=== PATIENT | female | born 1965 | race Caucasian/White ===

== ENCOUNTER 2021-08-16 11:21 | Day surgery (SDC) | payer OTHER ==
[~2021-08-16] VITALS: Ht 167.6 cm; Wt 79.5 kg
[~2021-08-16 11:21] MED LIST: BUPIVACAINE MPF 0.25% 30 ML VIAL. ONE; BUPR300T3 PO; CYCL5TAB PO; DEXAMETHASONE SOD PHOS 4 MG/ML VIAL ONE; DULA0.75 SQ; HYDROmorphone 2 MG/ML VIAL IVP PRN; IV RINGERS,LACTATED 1000ML 1,000 ML IV SCH; LIDOCAINE 2% PF 5 ML VIAL. ONE; LORA-434 PO; MORPHINE SULFATE 2 MG/ML INJ. IVP PRN; ONDANSETRON PF 4 MG/2 ML VIAL. ONE; PROCHLORPERAZINE 10 MG/2 ML VIAL. IVP PRN; PROPOFOL 10 MG/ML (20ML) VIAL. IV ONE; TRIA1TAB3 PO; fentaNYL PF VIAL 100 MCG/2 ML VIAL IVP PRN; fentaNYL PF VIAL 100 MCG/2 ML VIAL ONE
[2021-08-16] MEDS ORDERED: INSULIN LISPRO 100 UNIT/ML 3ML VIAL for OP,RR ONLY. SQ PRN (11:45)
[2021-08-16 11:58] VITALS: BP 135/74
[2021-08-16] MEDS ORDERED: SCOPOLAMINE 1.5MG PATCH. TD ONE ×2 (12:00→12:01)
[2021-08-16] MEDS ORDERED: SEVOFLURANE 31 TO 60 MINUTES. IH ONE (12:26)
--- NOTE | 2021-08-16 12:38 | PDOC4 ---
OPERATIVE NOTE Date: Date: Aug 16, 2021 Pre-Op Diagnosis: Mass dorsum right wrist Post-Op Diagnosis: Same Procedure Performed: Excision mass right wrist Surgeon: Bear Anesthesia Type: General Blood Loss: 5 cc Specimans Obtained: Mass right wrist dorsum Findings: See dictation Complications: None TABITHA CAMPBELL Jr. DO Aug 16, 2021 12:38
[2021-08-16] MEDS ORDERED: OXYC-325 PO (12:42)
[2021-08-16] MEDS ORDERED: oxyCODONE/APAP 5/325 1 TAB TABLET PO PRN (12:45)
--- NOTE | 2021-08-16 12:48 | DISCH ---
DISCHARGE INSTRUCTIONS Condition on Discharge Condition on Discharge: Stable Activity After Discharge Activity Instructions for Disc: Avoid exertion Bathing Instructions: Shower-keep dressing dry Lifting Instructions after Dis: No heavy lifting Driving Instructions after Dis: Do not drive today Weight Bearing Status after Di: No restrictions Wound Incision Care Wound/Incision Care: Ice to area for comfort Other wound/incision instructi: May change dressing postoperative day #3 Contacting the DRShannon after DC Call your doctor for: If your condition worsens Follow-Up Follow up with: Dr. Campbell in 10 to 14 days TABITHA CAMPBELL Jr. DO Aug 16, 2021 12:48
--- NOTE | 2021-08-16 12:48 | OP ---
DATE OF SURGERY: 08/16/2021 PREOPERATIVE DIAGNOSIS: Mass, right wrist dorsum. POSTOPERATIVE DIAGNOSIS: Mass, right wrist dorsum. PROCEDURE: Excision of mass, right wrist, 2 cm. SURGEON: Jamal Sifuentes Jr., DO WIRE STITCHER OPERATOR: Ivan. ANESTHESIA: General. COMPLICATIONS: None. ESTIMATED BLOOD LOSS: 5 mL. Standard dictation for bioinformatics assistant. DESCRIPTION OF PROCEDURE: The patient was taken to the operative suite, given a general anesthetic. The right upper extremity was then prepped and draped in a sterile fashion. Incision was made directly over the area of the mass. This was taken down carefully to the mass. The extensor tendons were identified and protected. The neurovascular structures were protected. One tributary was bovied. Mass was identified and was indeed a ganglion cyst. This was removed in its entirety using deeper dissection. This continued down to the carpal region. This was removed in its entirety. No other masses were noted. Therefore, this was thoroughly irrigated and suctioned dry. Wound was then reapproximated in an interrupted fashion. Sterile dressing was applied. Tourniquet was deflated with good return of pulses and capillary refill. The patient was then taken from the operative bed to the postoperative bed, taken to the PACU in stable condition. JOSE DE JESUS DR: Betty TID: [id number]
[2021-08-16] MEDS: fentaNYL PF VIAL 100 MCG/2 ML VIAL IVP PRN ×2 (12:57→13:08)
[2021-08-16 13:40] VITALS: BP 135/75
[2021-08-16] MEDS ORDERED: OXYC1TAB15 PO (14:00)
--- NOTE | 2021-08-17 15:10 | PATHOLOGY ---
[facility] Accession Number: [id number] . 01 Material submitted: . hand - RIGHT HAND GANGLION CYST DORSUM. Modifiers: right . 02 Diagnosis: Segments of dense fibroconnective and fibroadipose tissue, right hand dorsum: - Ganglion cyst, with focal edema and fibrinous exudate. (JPM:carolina; 08/17/2021) QMS 08/17/2021 1452 Local . 02 Electronically signed: . Tae Lopez MD, Pathologist NPI- [id number] . 01 Gross description: . The specimen is received in formalin, labeled "Kamryn Madrid, right hand ganglion cyst dorsum". It consists of 2 white-burks, irregular soft tissue fragments measuring 0.9 and 1.3 cm. The specimen is entirely submitted in A1. (MRF; 08/16/2021) MFE/MFE 08/16/2021 1922 Local . 02 Pathologist provided ICD-10: M67.441 . 02 CPT . 479357 Specimen Comment: A courtesy copy of this report has been sent to [phone], [phone] Specimen Comment: 2230 Specimen Comment: Report sent to / DR SIMPSON Performed at: 01 [facility] [address], [place], [place] [id number] MD Norman Dee MD Phone: [phone] Performed at: 02 [facility] [address] [place], [place] [id number] MD Tae Lopez MD Phone: [phone]
== END 2021-08-16 14:00 | disposition home or self-care (01) ==
LOC: SURG 11:21
PROVIDERS: ATTEND Orthopaedic Surgery
DX: M67.431 Ganglion, right wrist (principal); J43.9 Emphysema, unspecified; E11.9 Type 2 diabetes mellitus without complications; F41.9 Anxiety disorder, unspecified; F32.9 Major depressive disorder, single episode, unspecified; F17.210 Nicotine dependence, cigarettes, uncomplicated; Z87.440 Personal history of urinary (tract) infections; Z90.710 Acquired absence of both cervix and uterus; Z98.890 Other specified postprocedural states
CPT/HCPCS: 25111; 82962; A4209; A4930; A6402; A6448; J0690; J1100; J2405; J2704; J3010; J3490; 88304; A4657; A6452